=== PATIENT | female | born 2000 | race Two or more races ===

== ENCOUNTER 2025-04-14 09:36 | Emergency (ER) | payer MEDICAID, SELFPAY ==
[2025-04-14 09:48] VITALS: BP 144/83; PULSE 90; RESP 19; TEMP 36.5; O2SAT 98; BMI 28.3
--- NOTE | 2025-04-14 10:00 | PD.EDRME ---
Rapid Medical Screening Exam RME Arrival date/time: 04/14/25 09:36 25-year-old female presents Emergency Department with complaints of generalized backache body pain patient also reports constipation blood in her stool Chief Complaint: Back Pain/Injury Time Seen by Provider: 04/14/25 10:16 Vital signs: Vital Signs Temperature 97.7 F 04/14/25 09:48 Pulse Rate 90 04/14/25 09:48 Respiratory Rate 19 04/14/25 09:48 Blood Pressure 144/83 H 04/14/25 09:48 Pulse Oximetry (%) 98 04/14/25 09:48 Oxygen Delivery Method Room Air 04/14/25 09:48
[2025-04-14 10:16] LABS: Basophils # (Auto) 0.1 Thou/mm3 (0.0-0.2); Basophils % (Auto) 1 % (0-2.5); Eosinophils # (Auto) 0.1 Thou/mm3 (0.0-0.5); Eosinophils % (Auto) 1 % (0-10); Hematocrit 39.2 % (36.0-46.0); Hemoglobin 13.1 g/dL (12.0-16.0); Immature Granulocytes Auto 0.03 Thou/mm3 (0.00-0.00); Lymphocytes # (Auto) 0.7 Thou/mm3 (1.0-4.8); Lymphocytes % (Auto) 7 % (10-50); Mean Corpuscular HGB Conc 33.4 g/dl (31.0-37.0); Mean Corpuscular Hemoglobin 28.5 pg (25.0-35.0); Mean Corpuscular Volume 85 fL (80-100); Monocytes # (Auto) 0.2 Thou/mm3 (0.0-0.8); Monocytes % (Auto) 2 % (0-12); Neutrophils # (Auto) 8.5 Thou/mm3 (1.8-7.7); Neutrophils % (Auto) 90 % (37-80); Nucleated Red Blood Cell # 0.00 Thou/mm3 (0.00-0.00); Nucleated Red Blood Cell % 0 /100 WBC (0); Platelet Count 274 Thou/mm3 (140-440); RDW Standard Deviation 39.3 fL (36.4-46.3); Red Blood Count 4.59 Miln/mm3 (4.00-5.20); White Blood Count 9.5 Thou/mm3 (3.6-11.0)
[2025-04-14 10:29] LABS: Alanine Aminotransferase 22 U/L (10-49); Albumin, Serum 4.8 gm/dL (3.5-5.0); Albumin/Globulin Ratio 1.8 (1.2-2.2); Alkaline Phosphatase 92 U/L (46-116); Anion Gap 10 (7-16); Aspartate Amino Transferase 19 U/L (0-34); BUN/Creatinine Ratio 15 Ratio (12-20); Bilirubin,Total 1.3 mg/dL (0.3-1.2); Blood Urea Nitrogen 12 mg/dL (9-23); Calcium 9.2 mg/dL (8.3-10.6); Calcium (Corrected) 9.2 mg/dL (8.5-10.1); Carbon Dioxide 24.7 mMol/L (20.0-31.0); Chloride 106 mMol/L (98-107); Creatinine (Component) 0.8 mg/dL (0.6-1.3); Estimated Creatinine Clearance 104.6 mL/min (>60); Globulin 2.6 gm/dL (2.3-3.5); Glucose 114 mg/dL (74-106); Lipase 27 U/L (12-53); Osmolality,Calculated 281 (275-295); Potassium 3.7 mMol/L (3.4-5.1); Sodium 141 mMol/L (136-145); Total Protein 7.4 gm/dL (5.7-8.2); eGFR > 60 See Note
[2025-04-14 11:07] LABS: Collection Type, Urine Clean Catch
[2025-04-14 11:28] LABS: Bacteria,Urine Rare; Bilirubin,Urine Negative (Negative); Blood,Urine 2+ (Negative); Clarity,Urine Turbid (Clear/Hazy); Color,Urine Yellow (Lt Yel-Yel); Culture Indicated,Urine Not Indicated; Glucose, Urine Negative (Negative); Ketones,Urine Negative (Negative); Leukocyte Esterase,Urine Positive (Negative); Nitrite,Urine Negative (Negative); PH,Urine 6.5 (5.0-7.0); Protein,Urine Trace (Neg - Trace); RBC,Urine 6 /hpf (0-3); Specific Gravity,Urine 1.030 (1.001-1.035); Squamous Epithelial Cell,Urine 6 /hpf (0-5); Urobilinogen,Urine Negative mg/dL (0.0-1.0); WBC,Urine 2 /hpf (0-5)
[2025-04-14 11:30] LABS: HCG Qualitative,Urine Negative
--- NOTE | 2025-04-14 13:21 | PD.EDBACK ---
ED Back Injury Pain RME/HPI General Chief Complaint: Back Pain/Injury Stated Complaint: LOWER BACK PAIN, CHILLS Time Seen by Provider: 04/14/25 10:16 Arrival date/time: 04/14/25 09:36 RME / HPI RME / HPI Narrative: 04/14/25 09:36 25-year-old female presents Emergency Department with complaints of generalized backache body pain patient also reports constipation blood in her stool DR. [facility] 25 year old female with history of PMDD otherwise no other chronic medical history presents to the ED for evaluation of lower back pain beginning this morning after straining to have a bowel movement. Described as aching in sensation that is located most to lower back that radiates to bilateral knees. Initially rated as severe. However, states pain now waxing and waning in severity. States she did experience similar back pain 3 days ago while putting things away at work. Denied any heavy lifting. Additionally reports constipation beginning 1 month ago with bleeding from rectum beginning intermittently over the last week. States she is straining to have a bowel movement and stool is hard. Denies eating many vegetables on a daily basis. No other associated symptoms reported. Related Data Previous Rx's ?Medication ?Instructions ?Recorded polyethylene glycol 3350 17 17 g PO BID PRN constipation 7 04/14/25 gram/dose oral powder (Miralax) days #238 grams Allergies Allergy/AdvReac Type Severity Reaction Status Date / Time No Known Allergies Allergy Verified 04/14/25 09:39 Review of Systems Review of Systems Systems Reviewed: All systems reviewed, normal except as documented Past Medical History Social History SMOKING STATUS: Former smoker ED Exam Narrative Physical exam: Constitutional: Awake, alert, nontoxic, no acute distress HEENT: NC, AT, EOMI Neck: Supple CV: RRR, no m/r/g Lungs: CTAB, no w/r/r, no respiratory distress. Abd: Soft, minimal discomfort to lower abdomen, no rebound, no guarding, no HSM noted to palpation Extremities: No deformities, no edema noted Skin: Warm, dry, intact Course Quality Measures none Orders Category Date Time Status CBC Stat Lab 04/14/25 10:05 Completed Comprehensive Metabolic Panel Stat Lab 04/14/25 10:05 Completed HCG Qualitative,Urine Stat Lab 04/14/25 10:57 Completed Lipase Stat Lab 04/14/25 10:05 Completed UA, C/S IF [Urinalysis, C/S if Indicated] Stat Lab 04/14/25 10:57 Completed Vital Signs Vital signs: Vital Signs Temperature 97.7 F 04/14/25 09:48 Pulse Rate 90 04/14/25 09:48 Respiratory Rate 19 04/14/25 09:48 Blood Pressure 144/83 H 04/14/25 09:48 Pulse Oximetry (%) 98 04/14/25 09:48 Oxygen Delivery Method Room Air 04/14/25 09:48 Pulse ox is 98% on room air which is adequate. Back Pain / Injury Patient data External records reviewed:: [facility] previous records Clinical information provided by:: patient Social determinants that could affect healthcare access:: none Patient has the following chronic illnesses:: hx of PMDD otherwise no other states medical history How is presenting disease/condition affected by chronic disease/condition?: uneffected by Evaluation data The following diagnostics were reviewed and interpreted by me:: lab results Lab and/or radiology exams considered but not ordered:: None Interpretation Summary: as noted Medications / Prescriptions Medications or Prescriptions considered but not ordered:: None Medication administrations:: None Consultations Consultation(s) initiated? (list below): No Diagnosis Most likely diagnosis given after review of the tests above:: Constipation Low back pain Admission Indicated Admission indicated?: not indicated Admission Request Was there a request for admission?: No Disposition Plan Disposition Plan: Discharge Discharge Attestation Discharge Attestation: The patient and all family members were given an opportunity to ask questions and understood the discharge instructions. Discharge instructions specifically effects, indications for sooner follow up or return to the emergency department, and the expected course of current diagnosis. Patient condition: Stable Discharge Plan Plan Patient Disposition: HOME (Self Care) Prescriptions/Referrals Prescriptions/Med Rec: New polyethylene glycol 3350 [Miralax] 17 gram/dose powder 17 g PO BID PRN (Reason: constipation) 7 Days Qty: [id number] Referrals: Cody Dailey MD [Primary Care Provider, Family Practice] - In 1 week Problem List Clinical Impression: Constipation, Low back pain Patient/Caregiver Discharge Instructions Diet Instructions: Greatly increase your vegetable consumption and increase your fruit consumption as well focusing on fruits that have higher amounts of fiber such as oranges, apples, pears. Try drinking 1 cup of prune juice daily for the next few days to help with the constipation. Education Materials: Treating Constipation, 5 Steps for Eating Healthier, Eating a High-Fiber Diet Additional Instructions: Some general health principles that can help you are the [place] principles: Nutrition (eat a plant-based diet, avoiding meats in general, avoiding highly processed foods) Exercise (Daily exercise/walks as tolerated) Water (Drink adequate fresh water to maintain hydration, concentrating on water rather than on soda, coffee, tea, juice, etc for hydration) [place] (Spend time - 15-20 minutes or so with skin exposed in the flux core welder and late evening sun for Vitamin D health benefits) [place] (Avoid alcohol, illicit drugs, caffeinated beverages, smoking, etc) Air (Deep breathing exercises in the early mornings in fresh air) Rest (Adequate rest at night, going to bed a few hours before midnight and avoiding all screens/television/loud music in the time right before going to bed, also avoiding heavy meals just prior to going to bed) Trust in God (Spend time daily in Bible study and prayer - health benefits in contemplation of God's true character) Additional resources that can benefit: [email or web address], look under resources and seminars. Print Language: [place] Stand Alone Forms: [facility] Award Info., Patient Portal Info Letter
== END 2025-04-14 13:53 | disposition home or self-care (01) ==
PROVIDERS: Nurse Practitioner Primary Care; Emergency Provider Family Medicine; PCP Family Medicine
DX: K59.00 Constipation, unspecified (principal); M54.50 Low back pain, unspecified
CPT/HCPCS: 36415; 80053; 81001; 81025; 83690; 85025; 99283